=== PATIENT | female | born 1935 | race Caucasian/White ===

== ENCOUNTER 2021-05-23 05:59 | Inpatient (IN) ==
[2021-05-23 07:11] LABS: Basophils # 0.1 K/mcL (0.0-0.2); Basophils % 0.4 %; Eosinophils # 0.1 K/mcL (0.0-0.6); Eosinophils % 0.8 %; Hematocrit 29.2 % (35.3-44.9); Hemoglobin 8.5 g/dL (11.5-15.4); Immature Granulocytes % 1.1 % (0-4); Lymphocytes # 2.7 K/mcL (0.6-4.6); Mean Corpuscular HGB Conc 29.1 g/dL (31.6-35.5); Mean Corpuscular Hemoglobin 26.9 pg (28.0-33.3); Mean Corpuscular Volume 92.4 fL (83.0-100.0); Mean Platelet Volume 11.2 fL (9.4-12.4); Monocytes # 1.4 K/mcL (0.0-1.3); Monocytes % 7.7 %; Neutrophils # 13.6 K/mcL (1.6-8.9); Platelet Count 273 K/mcL (140-400); Red Blood Count 3.16 M/mcL (3.82-4.97); Red Cell Distribution Width 17.4 % (11.5-14.5); White Blood Count 18.1 K/mcL (4.3-11.1)
[2021-05-23 07:49] LABS: Influenza A PCR Negative (Negative); Influenza B PCR Negative (Negative); Resp. Syncytial Virus PCR Negative (Negative)
[2021-05-23 07:50] LABS: SARS-CoV-2 by PCR (In House) Negative (Negative)
[2021-05-23 07:51] LABS: Calcium 8.8 mg/dL (8.6-10.3); Potassium 3.8 mEq/L (3.5-5.1); Troponin I 0.03 ng/mL (< 0.04)
[2021-05-23] MEDS ORDERED: Ondansetron ODT 4 MG TAB.RAPDIS SL PRN (10:51)
[2021-05-23] MEDS ORDERED: Melatonin 3 MG TABLET PO PRN (10:51)
[2021-05-23] MEDS ORDERED: Mag Hydrox/Al Hydrox/Simeth 30 ML UDC PO PRN (10:51)
[2021-05-23] MEDS ORDERED: Naloxone 0.4 MG/ML INJ IVP PRN (10:51)
[2021-05-23] MEDS ORDERED: Azithromycin 500 MG in D5% in Water 250 ML IVPB ONE (10:53)
[2021-05-23] MEDS ORDERED: cefTRIAXone 1,000 MG in Water for inj. (sterile) 10 ML IVP ONE (11:00)
[2021-05-23] MEDS ORDERED: Aspirin 325 MG TABLET PO ONE (11:03)
[2021-05-23] MEDS ORDERED: Morphine Sulfate 2 MG/ML SYRINGE IVP PRN (11:03)
[2021-05-23] MEDS ORDERED: Nitroglycerin 0.4 MG TAB.SUBL SL PRN (11:03)
[2021-05-23] MEDS ORDERED: Ondansetron 4 MG/2 ML VIAL ONE (11:15)
[2021-05-23] MEDS ORDERED: Albuterol 2.5 MG/3 ML NEBULIZER IH PRN (12:14)
[2021-05-23] MEDS ORDERED: Dextrose Gel 15 GM/37.5 ML TUBE PO PRN ×2 (12:15)
[2021-05-23] MEDS ORDERED: D5% in Water 1,000 ML IVC PRN (12:15)
[2021-05-23] MEDS ORDERED: *HR* Dextrose 50 % in Water (Syg) 50 ML SYRINGE IVP PRN (12:15)
[2021-05-23] MEDS: calcitrioL 0.25 MCG CAPSULE PO SCH (12:49)
[2021-05-23 15:33] LABS: Ferritin 52 ng/mL (10-120); Iron < 10 mcg/dL (50-170)
[2021-05-23] MEDS: Ipratropium/Albuterol Neb 3 ML IH SCH ×3 (15:56→23:18)
[2021-05-23] MEDS: Insulin LISPRO 300 UNITS/3 ML VIAL SUBQ SCH ×2 (17:08→20:56)
[2021-05-23] MEDS: Acetaminophen 325 MG TABLET PO PRN (17:09)
[2021-05-23] MEDS: Budesonide/Formoterol 80/4.5 1 PUFF INH IH SCH (20:23)
[2021-05-24 03:07] LABS: Basophils # 0.1 K/mcL (0.0-0.2); Basophils % 0.5 %; Eosinophils # 0.2 K/mcL (0.0-0.6); Eosinophils % 1.5 %; Hematocrit 27.6 % (35.3-44.9); Hemoglobin 8.1 g/dL (11.5-15.4); Immature Granulocytes % 0.8 % (0-4); Lymphocytes # 2.6 K/mcL (0.6-4.6); Lymphocytes % 17.1 %; Mean Corpuscular HGB Conc 29.3 g/dL (31.6-35.5); Mean Corpuscular Hemoglobin 27.4 pg (28.0-33.3); Mean Corpuscular Volume 93.2 fL (83.0-100.0); Mean Platelet Volume 11.4 fL (9.4-12.4); Monocytes # 1.1 K/mcL (0.0-1.3); Monocytes % 7.5 %; Neutrophils # 10.9 K/mcL (1.6-8.9); Platelet Count 242 K/mcL (140-400); Red Blood Count 2.96 M/mcL (3.82-4.97); Red Cell Distribution Width 17.3 % (11.5-14.5); Segmented Neutrophils % 72.6 %
[2021-05-24 03:23] LABS: Calcium 8.5 mg/dL (8.6-10.3); Magnesium 1.7 mg/dL (1.6-2.6); Potassium 3.9 mEq/L (3.5-5.1)
[2021-05-24 03:40] LABS: Large Platelets Present (Not Present); Platelet Estimate Normal (Normal)
[2021-05-24] MEDS: Ipratropium/Albuterol Neb 3 ML IH SCH ×6 (04:34→23:46)
[2021-05-24] MEDS: Levothyroxine 25 MCG TABLET PO SCH (05:44)
[2021-05-24] MEDS: Budesonide/Formoterol 80/4.5 1 PUFF INH IH SCH ×2 (07:52→20:43)
[2021-05-24] MEDS: Insulin LISPRO 300 UNITS/3 ML VIAL SUBQ SCH ×4 (09:54→20:32)
[2021-05-24] MEDS: Azithromycin 500 MG in 0.9 % Sodium Chloride 250 ML IVPB SCH (11:01)
[2021-05-24] MEDS: Aspirin Enteric Coated 81 MG Tablet PO SCH (11:03)
[2021-05-24] MEDS: lisinopriL 5 MG TABLET PO SCH (11:04)
[2021-05-24] MEDS: cefTRIAXone 1,000 MG in Water for inj. (sterile) 10 ML IVP SCH (11:04)
[2021-05-24] MEDS: predniSONE 20 MG TABLET PO SCH (11:04)
[2021-05-24] MEDS: Gabapentin 300 MG CAPSULE PO SCH (20:25)
[2021-05-24] MEDS: Apixaban 2.5 MG TABLET PO SCH (20:26)
[2021-05-25 01:27] LABS: Calcium 8.6 mg/dL (8.6-10.3); Potassium 3.9 mEq/L (3.5-5.1)
[2021-05-25] MEDS: Ipratropium/Albuterol Neb 3 ML IH SCH ×5 (04:37→20:32)
[2021-05-25 05:01] LABS: Hemoglobin 7.7 g/dL (11.5-15.4); Mean Corpuscular HGB Conc 29.6 g/dL (31.6-35.5); Mean Corpuscular Volume 91.2 fL (83.0-100.0); Mean Platelet Volume 11.6 fL (9.4-12.4); Platelet Count 271 K/mcL (140-400); Red Blood Count 2.85 M/mcL (3.82-4.97); Red Cell Distribution Width 16.8 % (11.5-14.5); White Blood Count 10.7 K/mcL (4.3-11.1)
[2021-05-25 05:33] LABS: Anisocytosis 1+ (Not Present); Lymphocytes # 0.6 K/mcL (0.6-4.6); Monocytes # 0.2 K/mcL (0.0-1.3); Neutrophils # 9.8 K/mcL (1.6-8.9); Platelet Estimate Normal (Normal); Toxic Granulation Present (Not Present)
[2021-05-25] MEDS: Levothyroxine 25 MCG TABLET PO SCH (06:39)
[2021-05-25] MEDS: Acetaminophen 325 MG TABLET PO PRN (06:55)
[2021-05-25] MEDS: Budesonide/Formoterol 80/4.5 1 PUFF INH IH SCH ×2 (07:34→20:32)
[2021-05-25] MEDS: Aspirin Enteric Coated 81 MG Tablet PO SCH (08:59)
[2021-05-25] MEDS: predniSONE 20 MG TABLET PO SCH (09:00)
[2021-05-25] MEDS: cefTRIAXone 1,000 MG in Water for inj. (sterile) 10 ML IVP SCH (09:01)
[2021-05-25] MEDS: Gabapentin 300 MG CAPSULE PO SCH ×2 (09:01→20:05)
[2021-05-25] MEDS: lisinopriL 5 MG TABLET PO SCH (09:01)
[2021-05-25] MEDS: Apixaban 2.5 MG TABLET PO SCH ×2 (09:01→20:06)
[2021-05-25] MEDS: Azithromycin 500 MG in 0.9 % Sodium Chloride 250 ML IVPB SCH (09:02)
[2021-05-25] MEDS: calcitrioL 0.25 MCG CAPSULE PO SCH (09:12)
[2021-05-25] MEDS: Insulin LISPRO 300 UNITS/3 ML VIAL SUBQ SCH ×4 (11:09→20:41)
[2021-05-26] MEDS: Ipratropium/Albuterol Neb 3 ML IH SCH ×7 (00:11→23:44)
[2021-05-26 04:31] LABS: Basophils % 0.1 %; Hematocrit 22.2 % (35.3-44.9); Hemoglobin 6.9 g/dL (11.5-15.4); Immature Granulocytes % 1.6 % (0-4); Lymphocytes # 1.3 K/mcL (0.6-4.6); Lymphocytes % 10.3 %; Mean Corpuscular HGB Conc 31.1 g/dL (31.6-35.5); Mean Corpuscular Hemoglobin 27.8 pg (28.0-33.3); Mean Corpuscular Volume 89.5 fL (83.0-100.0); Mean Platelet Volume 11.5 fL (9.4-12.4); Monocytes # 0.8 K/mcL (0.0-1.3); Monocytes % 6.5 %; Neutrophils # 10.6 K/mcL (1.6-8.9); Platelet Count 285 K/mcL (140-400); Red Blood Count 2.48 M/mcL (3.82-4.97); Red Cell Distribution Width 16.6 % (11.5-14.5); Segmented Neutrophils % 81.5 %
[2021-05-26 04:53] LABS: Calcium 8.4 mg/dL (8.6-10.3); Potassium 4.2 mEq/L (3.5-5.1)
[2021-05-26] MEDS: Levothyroxine 25 MCG TABLET PO SCH (05:33)
[2021-05-26] MEDS: Budesonide/Formoterol 80/4.5 1 PUFF INH IH SCH ×2 (07:41→20:23)
[2021-05-26] MEDS ORDERED: 0.9 % Sodium Chloride 250 ML ONE (07:52)
[2021-05-26] MEDS: cefTRIAXone 1,000 MG in Water for inj. (sterile) 10 ML IVP SCH (08:15)
[2021-05-26] MEDS: lisinopriL 5 MG TABLET PO SCH (08:30)
[2021-05-26] MEDS: Azithromycin 250 MG TABLET PO SCH (08:30)
[2021-05-26] MEDS: Insulin LISPRO 300 UNITS/3 ML VIAL SUBQ SCH ×4 (08:31→20:51)
[2021-05-26] MEDS: Aspirin Enteric Coated 81 MG Tablet PO SCH (08:31)
[2021-05-26] MEDS: Gabapentin 300 MG CAPSULE PO SCH ×2 (08:31→20:45)
[2021-05-26] MEDS: predniSONE 20 MG TABLET PO SCH (08:31)
[2021-05-26] MEDS: Acetaminophen 325 MG TABLET PO PRN (11:47)
[2021-05-26 14:34] LABS: Hematocrit 30.1 % (35.3-44.9)
[2021-05-27] MEDS: Ipratropium/Albuterol Neb 3 ML IH SCH ×5 (04:17→19:47)
[2021-05-27] MEDS: Levothyroxine 25 MCG TABLET PO SCH (04:33)
[2021-05-27 05:42] LABS: Basophils # 0.1 K/mcL (0.0-0.2); Basophils % 0.4 %; Hematocrit 28.8 % (35.3-44.9); Hemoglobin 8.9 g/dL (11.5-15.4); Lymphocytes # 1.6 K/mcL (0.6-4.6); Mean Corpuscular HGB Conc 30.9 g/dL (31.6-35.5); Mean Corpuscular Hemoglobin 27.4 pg (28.0-33.3); Mean Corpuscular Volume 88.6 fL (83.0-100.0); Mean Platelet Volume 11.4 fL (9.4-12.4); Monocytes # 0.9 K/mcL (0.0-1.3); Monocytes % 7.5 %; Neutrophils # 9.5 K/mcL (1.6-8.9); Platelet Count 289 K/mcL (140-400); Red Blood Count 3.25 M/mcL (3.82-4.97); Red Cell Distribution Width 16.8 % (11.5-14.5); Segmented Neutrophils % 76.1 %; White Blood Count 12.5 K/mcL (4.3-11.1)
[2021-05-27 06:10] LABS: Calcium 8.5 mg/dL (8.6-10.3); Potassium 4.5 mEq/L (3.5-5.1)
[2021-05-27] MEDS: Budesonide/Formoterol 80/4.5 1 PUFF INH IH SCH ×2 (07:36→19:47)
[2021-05-27] MEDS: cefTRIAXone 1,000 MG in Water for inj. (sterile) 10 ML IVP SCH (07:55)
[2021-05-27] MEDS: Gabapentin 300 MG CAPSULE PO SCH ×2 (07:56→21:09)
[2021-05-27] MEDS: Aspirin Enteric Coated 81 MG Tablet PO SCH (07:57)
[2021-05-27] MEDS: Azithromycin 250 MG TABLET PO SCH (07:57)
[2021-05-27] MEDS: lisinopriL 5 MG TABLET PO SCH (07:57)
[2021-05-27] MEDS: Insulin LISPRO 300 UNITS/3 ML VIAL SUBQ SCH ×4 (07:57→21:11)
[2021-05-27] MEDS: predniSONE 20 MG TABLET PO SCH (07:57)
[2021-05-27] MEDS ORDERED: amLODIPine 5 MG TABLET PO SCH (15:00)
[2021-05-27] MEDS: Apixaban 2.5 MG TABLET PO SCH ×2 (15:25→21:10)
[2021-05-27 16:02] LABS: Estimated Average Glucose 126 mg/dl
[2021-05-27] MEDS: Acetaminophen 325 MG TABLET PO PRN (21:10)
[2021-05-28] MEDS: Ipratropium/Albuterol Neb 3 ML IH SCH ×7 (04:05→23:04)
[2021-05-28 04:30] LABS: Basophils # 0.1 K/mcL (0.0-0.2); Basophils % 0.9 %; Hematocrit 31.8 % (35.3-44.9); Hemoglobin 9.3 g/dL (11.5-15.4); Lymphocytes # 2.1 K/mcL (0.6-4.6); Lymphocytes % 14.9 %; Mean Corpuscular HGB Conc 29.2 g/dL (31.6-35.5); Mean Corpuscular Hemoglobin 25.8 pg (28.0-33.3); Mean Corpuscular Volume 88.1 fL (83.0-100.0); Monocytes # 1.2 K/mcL (0.0-1.3); Monocytes % 8.4 %; Platelet Count 327 K/mcL (140-400); Red Blood Count 3.61 M/mcL (3.82-4.97); Red Cell Distribution Width 16.6 % (11.5-14.5); Segmented Neutrophils % 70.8 %; White Blood Count 14.1 K/mcL (4.3-11.1)
[2021-05-28 04:47] LABS: Calcium 8.6 mg/dL (8.6-10.3); Potassium 4.8 mEq/L (3.5-5.1)
[2021-05-28] MEDS: Levothyroxine 25 MCG TABLET PO SCH (06:20)
[2021-05-28] MEDS: Budesonide/Formoterol 80/4.5 1 PUFF INH IH SCH ×2 (07:31→20:23)
[2021-05-28] MEDS: Aspirin Enteric Coated 81 MG Tablet PO SCH (08:33)
[2021-05-28] MEDS: cefTRIAXone 1,000 MG in Water for inj. (sterile) 10 ML IVP SCH (08:33)
[2021-05-28] MEDS: Gabapentin 300 MG CAPSULE PO SCH ×2 (08:34→21:49)
[2021-05-28] MEDS: amLODIPine 5 MG TABLET PO SCH (08:34)
[2021-05-28] MEDS: Apixaban 2.5 MG TABLET PO SCH ×2 (08:34→21:48)
[2021-05-28] MEDS: predniSONE 20 MG TABLET PO SCH (08:34)
[2021-05-28] MEDS: Insulin LISPRO 300 UNITS/3 ML VIAL SUBQ SCH ×4 (08:34→21:49)
[2021-05-28] MEDS: calcitrioL 0.25 MCG CAPSULE PO SCH (08:36)
[2021-05-28] MEDS ORDERED: Benzonatate 100 MG CAPSULE PO PRN (08:47)
[2021-05-28 10:10] LABS: Transferrin 161 mg/dL (200-400)
[2021-05-28] MEDS ORDERED: Perflutren Lipid Microsphere 1.3 ML in 0.9 % Sodium Chloride 8.7 ML IVP PRN (11:56)
[2021-05-28] MEDS: Furosemide 20 MG/2 ML VIAL IVP SCH (15:51)
[2021-05-29] MEDS: Acetaminophen 325 MG TABLET PO PRN (03:28)
[2021-05-29] MEDS: Ipratropium/Albuterol Neb 3 ML IH SCH ×6 (04:10→23:31)
[2021-05-29 04:46] LABS: Basophils % 0.1 %; Eosinophils % 0.1 %; Hematocrit 34.5 % (35.3-44.9); Hemoglobin 10.4 g/dL (11.5-15.4); Immature Granulocytes % 7.6 % (0-4); Lymphocytes # 2.2 K/mcL (0.6-4.6); Lymphocytes % 15.2 %; Mean Corpuscular HGB Conc 30.1 g/dL (31.6-35.5); Mean Corpuscular Hemoglobin 26.3 pg (28.0-33.3); Mean Corpuscular Volume 87.1 fL (83.0-100.0); Mean Platelet Volume 11.1 fL (9.4-12.4); Monocytes # 1.1 K/mcL (0.0-1.3); Monocytes % 7.6 %; Neutrophils # 10.2 K/mcL (1.6-8.9); Platelet Count 373 K/mcL (140-400); Red Blood Count 3.96 M/mcL (3.82-4.97); Red Cell Distribution Width 16.7 % (11.5-14.5); Segmented Neutrophils % 69.4 %; White Blood Count 14.7 K/mcL (4.3-11.1)
[2021-05-29 04:59] LABS: Potassium 4.3 mEq/L (3.5-5.1)
[2021-05-29] MEDS: Levothyroxine 25 MCG TABLET PO SCH (06:51)
[2021-05-29] MEDS: Budesonide/Formoterol 80/4.5 1 PUFF INH IH SCH ×2 (07:47→21:02)
[2021-05-29] MEDS: Gabapentin 300 MG CAPSULE PO SCH ×2 (10:20→22:59)
[2021-05-29] MEDS: Furosemide 20 MG/2 ML VIAL IVP SCH (10:20)
[2021-05-29] MEDS: Aspirin Enteric Coated 81 MG Tablet PO SCH (10:20)
[2021-05-29] MEDS: Apixaban 2.5 MG TABLET PO SCH (10:20)
[2021-05-29] MEDS: amLODIPine 5 MG TABLET PO SCH (10:20)
[2021-05-29] MEDS: cefTRIAXone 1,000 MG in Water for inj. (sterile) 10 ML IVP SCH (10:21)
[2021-05-29] MEDS: Insulin LISPRO 300 UNITS/3 ML VIAL SUBQ SCH ×4 (10:21→23:00)
[2021-05-29] MEDS: hydrALAZINE 25 MG TABLET PO SCH ×3 (10:23→23:04)
[2021-05-29] MEDS: Apixaban 5 MG TABLET PO SCH (22:59)
[2021-05-30] MEDS: Ipratropium/Albuterol Neb 3 ML IH SCH ×4 (04:25→15:14)
[2021-05-30] MEDS: Levothyroxine 25 MCG TABLET PO SCH (06:19)
[2021-05-30] MEDS: Budesonide/Formoterol 80/4.5 1 PUFF INH IH SCH (07:52)
[2021-05-30] MEDS: Insulin LISPRO 300 UNITS/3 ML VIAL SUBQ SCH ×2 (08:51→12:21)
[2021-05-30] MEDS: hydrALAZINE 25 MG TABLET PO SCH (09:00)
[2021-05-30] MEDS: Aspirin Enteric Coated 81 MG Tablet PO SCH (09:00)
[2021-05-30] MEDS: amLODIPine 5 MG TABLET PO SCH (09:00)
[2021-05-30] MEDS: Apixaban 5 MG TABLET PO SCH (09:00)
[2021-05-30] MEDS: Gabapentin 300 MG CAPSULE PO SCH (09:00)
[2021-05-30] MEDS: calcitrioL 0.25 MCG CAPSULE PO SCH (09:04)
[2021-05-30] MEDS: Acetaminophen 325 MG TABLET PO PRN (10:11)
[2021-05-30 15:58] VITALS: BP 116/69; PULSE 52; TEMP 97.5; O2SAT 92
== END 2021-05-30 17:57 | disposition home health service (06) | DRG 871 ==
LOC: EMEROOARM 05:59 → 3ANU 11:23 → INTOOBSV 11:23 → SUATTDRO 11:23 → 3ANU 12:00 → SUATTDRO 05-24 09:49
PROVIDERS: ADMIT Family Medicine; ATTEND General Practice

== ENCOUNTER 2021-10-19 16:05 | Inpatient (IN) ==
[2021-10-19] MEDS ORDERED: 0.9 % Sodium Chloride 1,000 ML IVC ONE (16:33)
[2021-10-19] MEDS: DilTIAZem 50 MG/50 ML IV.SOLN IVC SCH ×2 (17:15→22:35)
[2021-10-19] MEDS ORDERED: Albuterol 2.5 MG/3 ML NEBULIZER IH ONE (17:41)
[2021-10-19] MEDS ORDERED: Acetaminophen 325 MG TABLET PO ONE (17:41)
[2021-10-19 18:44] LABS: VBG HCO3 18 mEq/L (21-27); VBG PCO2 26 mmHg (41-51); VBG PH 7.46 pH Units (7.32-7.42); VBG PO2 191 mmHg (25-50)
[2021-10-19 20:38] LABS: Basophils # 0.1 K/mcL (0.0-0.2); Basophils % 0.6 %; Eosinophils # 0.2 K/mcL (0.0-0.6); Eosinophils % 1.2 %; Hematocrit 31.1 % (35.3-44.9); Hemoglobin 9.5 g/dL (11.5-15.4); Immature Granulocytes % 1.6 % (0-4); Lymphocytes # 2.2 K/mcL (0.6-4.6); Lymphocytes % 18.1 %; Mean Corpuscular HGB Conc 30.5 g/dL (31.6-35.5); Mean Corpuscular Hemoglobin 29.9 pg (28.0-33.3); Mean Platelet Volume 10.7 fL (9.4-12.4); Monocytes # 1.7 K/mcL (0.0-1.3); Monocytes % 13.6 %; Neutrophils # 7.9 K/mcL (1.6-8.9); Platelet Count 251 K/mcL (140-400); Red Blood Count 3.18 M/mcL (3.82-4.97); Red Cell Distribution Width 15.1 % (11.5-14.5); Segmented Neutrophils % 64.9 %; White Blood Count 12.1 K/mcL (4.3-11.1)
[2021-10-19 20:51] LABS: Mean Corpuscular Volume 97.8 fL (83.0-100.0)
[2021-10-19 20:55] LABS: Albumin 2.8 g/dL (3.5-5.7); Albumin/Globulin Ratio 1.1 (1.1-2.2); Bilirubin,Indirect 0.3 mg/dL (0.0-1.0); Bilirubin,Total 0.3 mg/dL (0.3-1.0); Calcium 8.5 mg/dL (8.6-10.3); Globulin 2.6 g/dL (2.4-3.5); Magnesium 1.4 mg/dL (1.6-2.6); Potassium 3.7 mEq/L (3.5-5.1); Total Protein 5.4 g/dL (6.4-8.9)
[2021-10-20] MEDS ORDERED: Naloxone 0.4 MG/ML INJ IVP PRN (03:01)
[2021-10-20] MEDS ORDERED: Melatonin 3 MG TABLET PO PRN (03:01)
[2021-10-20] MEDS: Levothyroxine 25 MCG TABLET PO SCH (05:06)
[2021-10-20 06:33] LABS: Basophils # 0.1 K/mcL (0.0-0.2); Basophils % 0.7 %; Eosinophils # 0.2 K/mcL (0.0-0.6); Hematocrit 31.4 % (35.3-44.9); Hemoglobin 9.5 g/dL (11.5-15.4); Immature Granulocytes % 2.4 % (0-4); Lymphocytes # 1.8 K/mcL (0.6-4.6); Lymphocytes % 18.8 %; Mean Corpuscular HGB Conc 30.3 g/dL (31.6-35.5); Mean Corpuscular Hemoglobin 29.4 pg (28.0-33.3); Mean Corpuscular Volume 97.2 fL (83.0-100.0); Mean Platelet Volume 10.6 fL (9.4-12.4); Monocytes # 1.1 K/mcL (0.0-1.3); Monocytes % 11.9 %; Neutrophils # 6.1 K/mcL (1.6-8.9); Platelet Count 254 K/mcL (140-400); Red Blood Count 3.23 M/mcL (3.82-4.97); Red Cell Distribution Width 15.3 % (11.5-14.5); Segmented Neutrophils % 64.2 %; White Blood Count 9.5 K/mcL (4.3-11.1)
[2021-10-20 07:08] LABS: Troponin I 0.05 ng/mL (< 0.04)
[2021-10-20 07:51] LABS: Calcium 8.6 mg/dL (8.6-10.3); Magnesium 2.3 mg/dL (1.6-2.6); Potassium 3.7 mEq/L (3.5-5.1)
[2021-10-20] MEDS: Aspirin Enteric Coated 81 MG Tablet PO SCH (08:09)
[2021-10-20] MEDS: Apixaban 5 MG TABLET PO SCH ×2 (08:10→19:38)
[2021-10-20] MEDS: lisinopriL 5 MG TABLET PO SCH (08:10)
[2021-10-20] MEDS: MethylPREDNISolone 40 MG/ML VIAL IVP SCH ×2 (08:11→14:56)
[2021-10-20] MEDS: Ipratropium 1 PUFF INHALER IH SCH ×3 (08:12→21:01)
[2021-10-20 09:28] LABS: Thyroid Stimulating Hormone 0.729 mcIU/mL (0.340-5.600)
[2021-10-20] MEDS: Cyanocobalamin (B-12) 1,000 MCG TABLET PO SCH (10:15)
[2021-10-20] MEDS: DilTIAZem 50 MG/50 ML IV.SOLN IVC SCH (10:15)
[2021-10-20] MEDS: Gabapentin 300 MG CAPSULE PO SCH ×2 (10:15→19:38)
[2021-10-20] MEDS: calcitrioL 0.25 MCG CAPSULE PO SCH (10:15)
[2021-10-20] MEDS: *HR* HYDROcodone/Acet 10/325 mg TABLET PO PRN (13:48)
[2021-10-20] MEDS ORDERED: *HR* Metoprolol 5 MG/5 ML VIAL IVP ONE (14:49)
[2021-10-21] MEDS: MethylPREDNISolone 40 MG/ML VIAL IVP SCH ×3 (00:29→17:30)
[2021-10-21] MEDS ORDERED: Benzonatate 100 MG CAPSULE PO PRN (02:44)
[2021-10-21] MEDS: amLODIPine 5 MG TABLET PO SCH ×2 (03:05→08:24)
[2021-10-21] MEDS: Ipratropium 1 PUFF INHALER IH SCH ×4 (04:30→20:39)
[2021-10-21 04:36] LABS: Basophils # 0.1 K/mcL (0.0-0.2); Basophils % 0.5 %; Hematocrit 31.4 % (35.3-44.9); Hemoglobin 9.8 g/dL (11.5-15.4); Immature Granulocytes % 5.4 % (0-4); Lymphocytes # 1.1 K/mcL (0.6-4.6); Lymphocytes % 9.6 %; Mean Corpuscular HGB Conc 31.2 g/dL (31.6-35.5); Mean Corpuscular Hemoglobin 30.2 pg (28.0-33.3); Mean Corpuscular Volume 96.9 fL (83.0-100.0); Mean Platelet Volume 11.4 fL (9.4-12.4); Monocytes # 0.2 K/mcL (0.0-1.3); Monocytes % 1.8 %; Neutrophils # 9.1 K/mcL (1.6-8.9); Platelet Count 289 K/mcL (140-400); Red Blood Count 3.24 M/mcL (3.82-4.97); Red Cell Distribution Width 14.6 % (11.5-14.5); Segmented Neutrophils % 82.7 %
[2021-10-21 05:08] LABS: Calcium 8.9 mg/dL (8.6-10.3); Potassium 5.3 mEq/L (3.5-5.1)
[2021-10-21 05:46] LABS: Platelet Estimate Normal (Normal); Reactive Lymphocytes Present (Not Present)
[2021-10-21] MEDS: Levothyroxine 25 MCG TABLET PO SCH (06:13)
[2021-10-21] MEDS: Gabapentin 300 MG CAPSULE PO SCH ×2 (08:23→20:13)
[2021-10-21] MEDS: lisinopriL 5 MG TABLET PO SCH (08:24)
[2021-10-21] MEDS: Apixaban 5 MG TABLET PO SCH ×2 (08:24→20:13)
[2021-10-21] MEDS: Aspirin Enteric Coated 81 MG Tablet PO SCH (08:24)
[2021-10-21] MEDS: Cyanocobalamin (B-12) 1,000 MCG TABLET PO SCH (08:24)
[2021-10-21] MEDS: calcitrioL 0.25 MCG CAPSULE PO SCH (08:27)
[2021-10-21] MEDS: *HR* HYDROcodone/Acet 10/325 mg TABLET PO PRN (17:53)
[2021-10-21 23:14] VITALS: TEMP 97.4
[2021-10-22] MEDS: MethylPREDNISolone 40 MG/ML VIAL IVP SCH ×2 (00:16→11:51)
[2021-10-22] MEDS: Ipratropium 1 PUFF INHALER IH SCH ×3 (03:47→15:31)
[2021-10-22] MEDS: Levothyroxine 25 MCG TABLET PO SCH (06:12)
[2021-10-22 06:26] VITALS: O2SAT 98
[2021-10-22 07:00] LABS: Basophils # 0.1 K/mcL (0.0-0.2); Basophils % 0.4 %; Eosinophils % 0.2 %; Hematocrit 32.1 % (35.3-44.9); Hemoglobin 10.2 g/dL (11.5-15.4); Immature Granulocytes % 5.2 % (0-4); Lymphocytes # 1.3 K/mcL (0.6-4.6); Lymphocytes % 6.9 %; Mean Corpuscular HGB Conc 31.8 g/dL (31.6-35.5); Mean Corpuscular Hemoglobin 30.2 pg (28.0-33.3); Mean Platelet Volume 11.2 fL (9.4-12.4); Monocytes # 0.5 K/mcL (0.0-1.3); Monocytes % 2.5 %; Neutrophils # 15.7 K/mcL (1.6-8.9); Platelet Count 349 K/mcL (140-400); Red Blood Count 3.38 M/mcL (3.82-4.97); Red Cell Distribution Width 14.7 % (11.5-14.5); Segmented Neutrophils % 84.8 %
[2021-10-22 07:02] LABS: White Blood Count 18.5 K/mcL (4.3-11.1)
[2021-10-22 07:15] LABS: Platelet Estimate Normal (Normal); Reactive Lymphocytes Present (Not Present)
[2021-10-22 07:17] LABS: Calcium 9.2 mg/dL (8.6-10.3); Magnesium 1.8 mg/dL (1.6-2.6); Potassium 4.9 mEq/L (3.5-5.1)
[2021-10-22] MEDS: amLODIPine 5 MG TABLET PO SCH (08:35)
[2021-10-22] MEDS: Cyanocobalamin (B-12) 1,000 MCG TABLET PO SCH (08:35)
[2021-10-22] MEDS: calcitrioL 0.25 MCG CAPSULE PO SCH (08:35)
[2021-10-22] MEDS: lisinopriL 5 MG TABLET PO SCH (08:35)
[2021-10-22] MEDS: Apixaban 5 MG TABLET PO SCH (08:35)
[2021-10-22] MEDS: Gabapentin 300 MG CAPSULE PO SCH (08:36)
[2021-10-22] MEDS: Aspirin Enteric Coated 81 MG Tablet PO SCH (08:36)
[2021-10-22] MEDS ORDERED: MethylPREDNISolone 40 MG/ML VIAL IVP SCH (09:00)
[2021-10-22 10:55] VITALS: BP 159/56; PULSE 87
== END 2021-10-22 15:58 | disposition home or self-care (01) | DRG 308 ==
LOC: 3NENU 16:05 → EMEROOARM 16:05 → SUATTDRO 10-20 01:43 → 3NENU 10-20 02:20
PROVIDERS: ADMIT Internal Medicine; ATTEND Family Medicine